=== PATIENT | male | born 1995 | race Caucasian/White ===

== ENCOUNTER 2023-10-18 18:44 | Emergency (ER) | payer SELFPAY ==
[~2023-10-18] VITALS: Ht 180.3 cm; Wt 83.5 kg
[2023-10-18 19:46] VITALS: BP 153/65; PULSE 117; RESP 18; TEMP 98.9; O2SAT 98
[2023-10-18 20:42] LABS: FLU A ANTIGEN negative (NEGATIVE)
[2023-10-18 20:43] LABS: FLU B ANTIGEN POSITIVE (NEGATIVE)
[2023-10-18] MEDS ORDERED: ONDA-188 SL (20:59)
[2023-10-18] MEDS: ONDANSETRON 4 MG ODT PO ONE (21:11)
== END 2023-10-18 21:12 | disposition home or self-care (01) ==
LOC: MED 18:44
DX: J10.1 Influenza due to other identified influenza virus with other respiratory manifestations (principal); Z20.822 Contact with and (suspected) exposure to COVID-19; Z79.899 Other long term (current) drug therapy
CPT/HCPCS: 99283

== ENCOUNTER 2024-04-10 16:55 | Emergency (ER) | payer MEDICAID, OTHER ==
[~2024-04-10 16:55] MED LIST: ONDA-188 SL
== END 2024-04-10 17:01 | disposition left against medical advice (07) ==
LOC: MED 16:55
DX: F41.9 Anxiety disorder, unspecified (principal); Z53.21 Procedure and treatment not carried out due to patient leaving prior to being seen by health care provider

== ENCOUNTER 2024-04-14 09:11 | Observation (INO) | payer OTHER ==
[~2024-04-14] VITALS: Ht 180.3 cm; Wt 83.5 kg
[2024-04-14 09:14] VITALS: BP 148/71; PULSE 115; RESP 18; TEMP 98; O2SAT 98
[2024-04-14] MEDS: NACL 0.9% 1,000 ML IV ONE (09:36)
[2024-04-14 09:44] LABS: BASOPHILS # (AUTO) 0.1 K/uL (0.00-0.22); BASOPHILS % (AUTO) 0.9 % (0.0-2.0); EOSINOPHILS # (AUTO) 0.1 K/uL (0-0.4); EOSINOPHILS % (AUTO) 1.2 % (0.0-4.0); HEMATOCRIT 39.1 % (36-52); HEMOGLOBIN 13.7 g/dL (12.0-18.0); LYMPHOCYTES # (AUTO) 1.3 K/uL (2.0-11.5); LYMPHOCYTES % (AUTO) 17.9 % (20.5-51.1); MEAN CORPUSCULAR HEMOGLOBIN 35 pg (27-31); MEAN CORPUSCULAR HGB CONC 35 g/dL (33-37); MEAN CORPUSCULAR VOLUME 98.7 fL (80-94); MONOCYTES # (AUTO) 0.3 K/uL (0.8-1.0); MONOCYTES % (AUTO) 4.4 % (1.7-9.3); NEUTROPHILS # (AUTO) 5.3 K/uL (1.8-7.7); NEUTROPHILS % (AUTO) 75.6 % (42.2-75.2); PLATELET COUNT (AUTO) 430 K/uL (140-450); RED BLOOD CELL COUNT(AUTO) 3.96 MIL/uL (4.20-6.10); RED CELL DISTRIBUTION WIDTH 15.6 % (11.6-13.7)
[2024-04-14 09:59] LABS: ANION GAP 10.7 (8-16); CALCIUM 8.2 mg/dL (8.5-10.1); CARBON DIOXIDE 29.2 mmol/L (21-32); CREATININE 0.9 mg/dL (0.6-1.3); POTASSIUM 3.9 mmol/L (3.5-5.1)
[2024-04-14 10:06] LABS: ALANINE AMINOTRANSFERASE 102 U/L (12-78); ALBUMIN 3.1 g/dL (3.4-5.0); ALKALINE PHOSPHATASE 87 U/L (50-136); ASPARTATE AMINOTRANSFERASE 100 U/L (15-37); BILIRUBIN,DIRECT 0.2 mg/dL (0.0-0.3); TOTAL BILIRUBIN 0.7 mg/dL (0.0-1.0)
[2024-04-14 10:14] LABS: ALCOHOL, BLOOD < 3 mg/dL (<10)
[2024-04-14 11:23] LABS: APPEARANCE,URINE CLEAR (CLEAR); BILIRUBIN,URINE NEGATIVE (NEGATIVE); BLOOD, URINE NEGATIVE (NEGATIVE); COLOR,URINE YELLOW (YELLOW); LEUKOCYTE ESTERASE ,URINE NEGATIVE (NEGATIVE); NITRITE, URINE NEGATIVE (NEGATIVE); PH,URINE 7.5 (5.0-9.0); PROTEIN,URINE NEGATIVE (NEGATIVE); UGLUCOSE NEGATIVE (NEGATIVE); UROBILINOGEN,URINE 0.2 EU/dL (0.2 - 1)
[2024-04-14 11:35] LABS: CANNABINOID, URINE POSITIVE ng/mL (NEG <=50)
[2024-04-14 11:38] LABS: AMPHETAMINE, URINE NEGATIVE ng/ml (NEG <=1000); BARBITURATE, URINE NEGATIVE ng/ml (NEG <=200); BENZODIAZEPINE, URINE NEGATIVE ng/mL (NEG <=200); COCAINE, URINE POSITIVE ng/mL (NEG <=300); OPIATE, URINE NEGATIVE ng/mL (NEG <=2000); PHENCYCLIDINE SCREEN,URINE NEGATIVE ng/mL (NEG <=25)
[2024-04-14] MEDS ORDERED: ACETAMINOPHEN 325 MG TAB PO PRN (12:30)
[2024-04-14] MEDS ORDERED: MAGNESIUM OXIDE 400 MG TAB PO PRN (12:30)
[2024-04-14] MEDS: NACL 0.9% 1,000 ML IV SCH (12:30)
[2024-04-14] MEDS ORDERED: LORazepam 1 MG TAB PO PRN (12:30)
[2024-04-14] MEDS ORDERED: MAG SULF 2000 MG/WATER PREMIX 50 ML IV PRN (12:30)
[2024-04-14] MEDS ORDERED: KCL 20 MEQ IN 100 mL PREMIX 200 ML IV PRN (12:30)
[2024-04-14] MEDS ORDERED: ONDANSETRON 4 MG/2 ML VIAL IVP PRN (12:30)
[2024-04-14] MEDS ORDERED: MORPHINE SULFATE 4 MG/ML SYR IVP PRN (12:30)
[2024-04-14] MEDS ORDERED: HYDROcodone/APAP 5/325 MG 1 TAB TAB PO PRN (12:30)
[2024-04-14] MEDS: LORazepam 2 MG/ML VIAL IVP ONE (12:31)
[2024-04-14] MEDS ORDERED: LORazepam 2 MG/ML VIAL IVP PRN (12:35)
[2024-04-14] MEDS: MULTIVITAMIN 1 TAB PO SCH (12:45)
[2024-04-14] MEDS: chlordiazePOXIDE 25 MG CAP PO SCH (12:45)
[2024-04-14 14:00] VITALS: PULSE 82; RESP 20; O2SAT 97
[2024-04-14 16:00] VITALS: BP 107/56; PULSE 94; PULSE 98; RESP 20; TEMP 99.1; O2SAT 97
[2024-04-14 20:00] VITALS: BP 116/67; PULSE 101; PULSE 108; PULSE 97; RESP 18; TEMP 98; O2SAT 97
[2024-04-14] MEDS ORDERED: CHLO-757 PO (22:25)
[2024-04-15] VITALS: BP 107/64; PULSE 104; PULSE 106; RESP 19; TEMP 97; O2SAT 97
[2024-04-15 04:00] VITALS: BP 113/72; PULSE 83; PULSE 97; RESP 19; TEMP 96.6; O2SAT 97
[2024-04-15 06:59] LABS: BASOPHILS # (AUTO) 0.1 K/uL (0.00-0.22); BASOPHILS % (AUTO) 1.5 % (0.0-2.0); EOSINOPHILS # (AUTO) 0.2 K/uL (0-0.4); EOSINOPHILS % (AUTO) 2.3 % (0.0-4.0); HEMATOCRIT 36.2 % (36-52); HEMOGLOBIN 12.5 g/dL (12.0-18.0); LYMPHOCYTES # (AUTO) 1.9 K/uL (2.0-11.5); LYMPHOCYTES % (AUTO) 28.4 % (20.5-51.1); MEAN CORPUSCULAR HEMOGLOBIN 35 pg (27-31); MEAN CORPUSCULAR HGB CONC 35 g/dL (33-37); MONOCYTES # (AUTO) 0.5 K/uL (0.8-1.0); MONOCYTES % (AUTO) 7.6 % (1.7-9.3); NEUTROPHILS % (AUTO) 60.2 % (42.2-75.2); PLATELET COUNT (AUTO) 398 K/uL (140-450); RED BLOOD CELL COUNT(AUTO) 3.62 MIL/uL (4.20-6.10); RED CELL DISTRIBUTION WIDTH 15.6 % (11.6-13.7); WHITE BLOOD COUNT (AUTO) 6.6 K/uL (4.8-10.8)
[2024-04-15 07:27] LABS: ALBUMIN 2.9 g/dL (3.4-5.0); ANION GAP 11.7 (8-16); CARBON DIOXIDE 27.5 mmol/L (21-32); CREATININE 0.8 mg/dL (0.6-1.3); MAGNESIUM 2.4 mg/dL (1.8-2.4); POTASSIUM 4.2 mmol/L (3.5-5.1); TOTAL BILIRUBIN 0.4 mg/dL (0.0-1.0); TOTAL PROTEIN, SERUM 6.6 g/dL (6.4-8.2)
[2024-04-15 08:00] VITALS: BP_SYST 111; BP_SYST 113; BP_DIAS 72; BP_DIAS 74; PULSE 87; PULSE 95; RESP 18; TEMP 98.1; TEMP 98.6; O2SAT 98
[2024-04-15] MEDS: ENOXAPARIN 40 MG/0.4 ML SYR SUBQ SCH (08:35)
[2024-04-15] MEDS: MEDS-TO-BEDS MC SCH (09:00)
[2024-04-15 12:00] VITALS: BP 115/74; PULSE 108; RESP 18; TEMP 98.9; O2SAT 99
== END 2024-04-15 16:20 | disposition home or self-care (01) ==
LOC: MED 09:11 → MTU 12:30
PROVIDERS: ADMIT Student in an Organized Health Care Education/Training Program; ATTEND Student in an Organized Health Care Education/Training Program
DX: R56.9 Unspecified convulsions (principal); F10.10 Alcohol abuse, uncomplicated; E86.1 Hypovolemia; F17.200 Nicotine dependence, unspecified, uncomplicated; Z79.899 Other long term (current) drug therapy
CPT/HCPCS: 36415; 70450; 71045; 80048; 80053; 80076; 80305; 81003; 83735; 85025; 87081; 93005; 96361; 96372; 96374; 99285; G0378; G0482; J1650; J2060